=== PATIENT | female | born 2005 | race Caucasian/White ===

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

== ENCOUNTER 2025-01-15 10:18 | Outpatient (CLI) | payer OTHER | END 2025-01-15 10:19 | disposition home or self-care (01) | LOC: PRENATAL 10:18 | PROVIDERS: ATTEND Obstetrics & Gynecology Maternal & Fetal Medicine | DX: O26.849 Uterine size-date discrepancy, unspecified trimester (principal); O36.8199 Decreased fetal movements, unspecified trimester, other fetus; O36.60X0 Maternal care for excessive fetal growth, unspecified trimester, not applicable or unspecified; Z3A.35 35 weeks gestation of pregnancy ==

== ENCOUNTER 2025-02-03 21:43 | Inpatient (IN) | payer OTHER ==
[~2025-02-03] VITALS: Ht 157.5 cm; Wt 56.7 kg
[2025-02-03 21:17] VITALS: BP 120/76
[2025-02-03] MEDS ORDERED: CEFAZOLIN SODIUM 1,000 MG VIAL IV SCH (21:47)
[2025-02-03] MEDS ORDERED: CEFAZOLIN SODIUM 1,000 MG VIAL IV ONE (22:00)
[2025-02-03] MEDS ORDERED: RINGERS SOLUTION,LACTATED 1,000 ML IV SCH (22:00)
[2025-02-03 23:10] LABS: PH,URINE 6.5 (5.0-8.0); URINE APPEARANCE Clear; URINE BILIRRUBIN Negative (NEGATIVE); URINE BLOOD Negative; URINE COLOR Yellow; URINE GLUCOSE Negative (NEGATIVE); URINE KETONE Negative (NEGATIVE); URINE LEUKOCYTE Trace; URINE NITRATE Negative; URINE PROTEIN Negative (NEGATIVE); URINE UROBILINOGEN 0.2 E.U./dl
[2025-02-03 23:13] LABS: URINE BACTERIA 1309.1 uL (0.0-1933); URINE EPITHELIAL CELLS 33.3 uL (0.0-38.8)
[2025-02-03 23:32] VITALS: BP 126/63
[2025-02-03 23:35] LABS: HEMATOCRIT 34.8 % (36.0-45.00); HEMOGLOBIN 11.6 g/dL (12.0-15.00); MEAN CELL VOLUME 86.7 fL (80.00-100.00); MEAN CORPUSCULAR HGB CONC 33.4 g/dl (32.0-36.0); PLATELET COUNT 200 K/uL (150-450); RED BLOOD COUNT 4.02 M/uL (4.00-6.00)
[2025-02-03 23:37] LABS: RED CELL DISTRIBUTION WIDTH 20.4 % (11.5-14.5); URINE RBC 0.1 uL (0.0-20.8)
[2025-02-03 23:45] LABS: INR < 0.93; PARTIAL THROMBOPLASTIN TIME 24.3 SECONDS (22.0-34.0); PROTHROMBIN TIME 10.1 SECONDS (9.0-11.5)
[2025-02-03 23:49] LABS: ALBUMIN 2.7 gm/dL (3.4-5.0); BILIRUBIN TOTAL 0.22 mg/dL (0.3-1.2); CALCIUM 9.2 mg/dL (8.5-10.1); CREATININE SERUM 0.53 mg/dL (0.55-1.02); GFR 148.61; GLOBULINA 3.5 G/DL (2.4-3.5); POTASSIUM 4.28 mEq/L (3.5-5.1); TOTAL PROTEIN 6.2 gm/dL (6.4-8.2)
[2025-02-04 03:08] VITALS: BP 121/65
[2025-02-04 07:48] VITALS: BP 120/77
[2025-02-04] MEDS ORDERED: OXYTOCIN 500 ML IV SCH (08:15)
[2025-02-04 11:38] VITALS: BP 132/76
[2025-02-04] MEDS ORDERED: MORPHINE SULFATE 4 MG/ML CARTRIDGE IV ONE (13:45)
[2025-02-04] MEDS ORDERED: IBUprofen 400 MG TABLET PO PRN (14:45)
[2025-02-04 15:45] VITALS: BP 114/75
[2025-02-04 17:00] VITALS: BP 121/75
[2025-02-05] VITALS: BP 124/78
[2025-02-05 06:38] LABS: HEMATOCRIT 33.3 % (36.0-45.00); MEAN CELL VOLUME 86.8 fL (80.00-100.00); MEAN CORPUSCULAR HGB CONC 33.2 g/dl (32.0-36.0); PLATELET COUNT 176 K/uL (150-450); RED BLOOD COUNT 3.83 M/uL (4.00-6.00); RED CELL DISTRIBUTION WIDTH 20.8 % (11.5-14.5)
[2025-02-05 06:44] LABS: MEAN CORPUSCULAR HEMOGLOBIN 28.7 pg (27.00-32.0)
[2025-02-05 08:09] VITALS: BP 111/70
[2025-02-05] MEDS ORDERED: PNV,CALCIUM 72/IRON/FOLIC ACID 1 TAB TABLET PO SCH (09:00)
[2025-02-05 17:06] VITALS: BP 117/75
[2025-02-06] VITALS: BP 103/66
[2025-02-06 08:50] VITALS: BP 117/78
== END 2025-02-06 18:02 | disposition home or self-care (01) | DRG 807 ==
LOC: LDR 21:43 → OB/GYN 02-04 14:26
PROVIDERS: Specialist; ADMIT Obstetrics & Gynecology; ATTEND Obstetrics & Gynecology
PROC: 4A1HXCZ Monitoring of Products of Conception, Cardiac Rate, External Approach (ICD-10-PCS; 2025-02-03)
PROC: 10E0XZZ Delivery of Products of Conception, External Approach (ICD-10-PCS; principal; 2025-02-04)
DX: O80 Encounter for full-term uncomplicated delivery (principal); Z37.0 Single live birth; Z3A.38 38 weeks gestation of pregnancy